=== PATIENT | male | born 1975 | race Caucasian/White ===

== ENCOUNTER 2022-12-07 07:19 | Day surgery (SDC) | payer BC ==
[~2022-12-07] VITALS: Ht 182.9 cm; Wt 75.5 kg
[~2022-12-07 07:19] MED LIST: NO HOME MEDICATIONS
[2022-12-07 07:48] VITALS: BP 124/79; PULSE 83; TEMP 97.7
[2022-12-07] MEDS ORDERED: PRINIVIL10 MG PO (07:51)
[2022-12-07 09:20] VITALS: BP 100/58; PULSE 67; TEMP 97.7
--- NOTE | 2022-12-07 09:20 | NUR ---
0920 PATIENT RETURNS TO ROOM 7 VIA CART. PATIENT IS ALERT AND ORIENTED. PATIENT AMBULATES TO RECLINER WITH THE ASSISTANCE OF 2 NURSES. RESPIRATIONS EVEN AND UNLABORED. VITAL SIGNS OBTAINED. SPOUSE IN ROOM. PATIENT REQUESTED WATER, NO DIFFICULTIES SWALLOWING. 0925 DOCTOR IN TO SPEAK WITH PATIENT. 0935 DISCHARGE INSTRUCTIONS REVIEWED WITH PATIENT AND PATIENT . BOTH VERBALIZED UNDERSTANDING. 0940 DISCONTINUED IV FROM RIGHT HAND WITH NO DIFFICULTIES. 0945 PATIENT DISCHARGES FROM UNIT VIA WHEELCHAIR IN STABLE CONDITION.
[2022-12-07 09:35] VITALS: BP 93/62; PULSE 65
[2022-12-07 09:40] VITALS: BP 103/76; PULSE 65
== END 2022-12-07 09:45 | disposition home or self-care (01) ==
LOC: SDCO 07:19
DX: Z12.11 Encounter for screening for malignant neoplasm of colon (principal)
CPT/HCPCS: J2704; J7120